=== PATIENT | female | born 1995 | race American Indian/Alaskan Native ===

== ENCOUNTER 2016-05-17 20:44 | Emergency (ER) | payer MEDICAID ==
[2016-05-17 21:23] VITALS: BP 120/83
== END 2016-05-18 02:40 | disposition left against medical advice (07) ==
LOC: ED 20:44
DX: N89.8 Other specified noninflammatory disorders of vagina (principal); L29.9 Pruritus, unspecified; Z53.21 Procedure and treatment not carried out due to patient leaving prior to being seen by health care provider

== ENCOUNTER 2018-05-09 09:47 | Outpatient (CLI) | payer MEDICAID ==
[2018-05-09 10:23] VITALS: BP 95/61
[2018-05-09 10:44] LABS: Bacteria,Urine 2+ /HPF (Negative); Bilirubin,Urine NEG (Negative); Blood,Urine NEG (Negative); Color,Urine Yellow (Yellow); Mucus,Urine FEW /HPF
[2018-05-09] MEDS ORDERED: XYLOCAINE 1% MPF 5 mL INFILTRATI ONE (10:56)
[2018-05-09] MEDS ORDERED: LACTATED RINGERS 1,000 ML IV ONE (10:59)
[2018-05-09] MEDS ORDERED: ROCEPHIN IM SCH (11:00)
[2018-05-09] MEDS ORDERED: ROCEPHIN/NS 1 GM/50 ML 1 GM/50 ML BAG IV ONE (11:24)
== END 2018-05-09 12:55 | disposition home or self-care (01) ==
LOC: TRG 09:47
PROVIDERS: ATTEND Obstetrics & Gynecology
DX: O47.03 False labor before 37 completed weeks of gestation, third trimester (principal); Z3A.32 32 weeks gestation of pregnancy; Z87.891 Personal history of nicotine dependence
CPT/HCPCS: 59025; 81001; J0696; J7120

== ENCOUNTER 2018-06-06 14:41 | Emergency (ER) | payer MEDICAID ==
--- NOTE | 2018-06-06 14:58 | Emergency Department Report ---
Blank Doc - Documentation Documentation: This is a 22-year-old female that presents with nausea vomiting x1 episode. D enies any abdominal pain or pelvic pain. Patient stated she vomited after seeing her daugther vomiting. Stated that smell caused her to vomit. Denies any nausea or vomiting now. Stated is 36 weeks . Denies any vaginal bleeding. This initial assessment/diagnostic orders/clinical plan/treatment(s) is/are subject to change based on patient's health status, clinical progression and re-assessment by fellow clinical providers in the ED. Further treatment and workup at subsequent clinical providers discretion. Patient/guardians urged not to elope from the ED as their condition may be serious if not clinically assessed and managed. Initial orders include: 1- Patient sent to [facility] for further evaluation and treatment
--- NOTE | 2018-06-06 17:32 | Emergency Department Report ---
ED N/V/D HPI - General Chief complaint: Nausea/Vomiting/Diarrhea Stated complaint: FLU LIKE SYM/VOMIT Time Seen by Provider: 06/06/18 14:54 Source: patient Mode of arrival: Ambulatory Limitations: No Limitations - History of Present Illness Initial comments: Pt is a 22 yo female who presents to the ED with c/o nausea and one episode of emesis that occurred this morning. The patient states her daughter has V/D, and she had an episode of emesis while she was cleaning her daughter up due to the smell. The patient denies any abdominal pain, diarrhea, fever, urinary sx, vaginal discharge, or vaginal bleeding. She is currently 36 weeks . The mother is able to tolerate PO intake without any difficulty. /P:2/A:0 MD complaint: nausea, vomiting -: This morning Description of Vomiting: food contents Associated Abdominal Pain: No Severity: mild Pain Scale: 0 Associated Symptoms: denies other symptoms - Related Data Home Medications Medication Instructions Recorded Confirmed Last Taken Vit No.130/Iron/Folic 1 each PO QDAY 07/06/15 07/06/15 07/03/15 10:00 [ Tablet] Previous Rx's Medication Instructions Recorded Last Taken Type Nitrofurantoin Monohyd/M-Cryst 100 mg PO BID #14 capsule 05/09/18 Unknown Rx [Macrobid 100 mg Capsule] Doxylamine Succinate [Unisom] 25 mg PO DAILY PRN #10 tablet 06/06/18 Unknown Rx Pyridoxine HCl (Vitamin B6) 250 mg PO DAILY PRN #10 tablet 06/06/18 Unknown Rx [Vitamin B-6] Allergies Allergy/AdvReac Type Severity Reaction Status Date / Time No Known Allergies Allergy Verified 06/06/18 14:43 ED Review of Systems ROS: Stated complaint: FLU LIKE SYM/VOMIT Other details as noted in HPI Comment: All other systems reviewed and negative ED Past Medical Hx - Past Medical History Hx Hypertension: No Hx Congestive Heart Failure: No Hx Diabetes: No Hx Deep Vein Thrombosis: No Hx Renal Disease: No Hx Sickle Cell Disease: No Hx Seizures: No Hx Asthma: No Hx COPD: No Hx HIV: No - Social History Smoking Status: Never Smoker Substance Use Type: None - Medications Home Medications: Home Medications Medication Instructions Recorded Confirmed Last Taken Type Vit No.130/Iron/Folic 1 each PO QDAY 07/06/15 07/06/15 07/03/15 10:00 History [ Tablet] Nitrofurantoin Monohyd/M-Cryst 100 mg PO BID #14 capsule 05/09/18 Unknown Rx [Macrobid 100 mg Capsule] Doxylamine Succinate [Unisom] 25 mg PO DAILY PRN #10 tablet 06/06/18 Unknown Rx Pyridoxine HCl (Vitamin B6) 250 mg PO DAILY PRN #10 tablet 06/06/18 Unknown Rx [Vitamin B-6] ED Physical Exam - General Limitations: No Limitations General appearance: alert, in no apparent distress - Head Head exam: Present: atraumatic, normocephalic - Eye Eye exam: Present: normal appearance - ENT ENT exam: Present: normal exam, mucous membranes moist - Neck Neck exam: Present: normal inspection - Respiratory Respiratory exam: Present: normal lung sounds bilaterally. Absent: respiratory distress, wheezes, rales, rhonchi, stridor, chest wall tenderness, accessory muscle use, decreased breath sounds, prolonged expiratory - Cardiovascular Cardiovascular Exam: Present: regular rate, normal rhythm, normal heart sounds. Absent: systolic murmur, rubs, gallop - GI/Abdominal GI/Abdominal exam: Present: soft, normal bowel sounds. Absent: distended, tenderness, guarding, rebound, rigid - Neurological Exam Neurological exam: Present: alert, oriented X3 - Psychiatric Psychiatric exam: Present: normal affect, normal mood - Skin Skin exam: Present: warm, dry, intact (no signs of dehydration ) ED Course Vital Signs 06/06/18 06/06/18 14:59 17:50 Temperature 98.1 F Pulse Rate 99 H 76 Respiratory 16 18 Rate Blood Pressure 108/63 [Left] O2 Sat by Pulse 97 Oximetry ED Medical Decision Making - Medical Decision Making Pt is 36 weeks presents with one episode of emesis due to having to clean her daughter up after V/D. Denies any abdominal pain, vaginal bleeding, fever, vaginal discharge, diarrhea, or any other sx. Pt is well hydrated tolerating PO intake with no difficulty. Will send home with diclegis due to being in third trimester . - Differential Diagnosis N/V of , Viral syndrome Critical care attestation.: If time is entered above; I have spent that time in minutes in the direct care of this critically ill patient, excluding procedure time. ED Disposition Clinical Impression: Nausea & vomiting Qualifiers: Vomiting type: unspecified Vomiting Intractability: non-intractable Qualified Code(s): R11.2 - Nausea with vomiting, unspecified Qualifiers: Weeks of gestation: 36 weeks Qualified Code(s): Z3A.36 - 36 weeks gestation of Disposition: TO HOME OR SELFCARE Is pt being admited?: No Does the pt Need Aspirin: No Condition: Stable Instructions: Acute Nausea and Vomiting (ED) Additional Instructions: Follow up with primary care doctor in the next two to three days. Keep your appointment with your OB doctor on 06/10/18. Return to the emergency department if new or worsening symptoms. Do not drive while taking medication, could cause drowsiness. Prescriptions: Doxylamine Succinate [Unisom] 25 mg PO DAILY PRN #10 tablet PRN Reason: Nausea And Vomiting Pyridoxine HCl (Vitamin B6) [Vitamin B-6] 250 mg PO DAILY PRN #10 tablet PRN Reason: Nausea And Vomiting Referrals: CHENCHO ROSALES MD [Primary Care Provider] - 3-5 Days Time of Disposition: 17:33 Print Language: [place]
== END 2018-06-06 17:52 | disposition home or self-care (01) ==
LOC: ED 14:41
CPT/HCPCS: 99282

== ENCOUNTER 2018-11-17 03:21 | Emergency (ER) | payer MEDICAID ==
--- NOTE | 2018-11-17 04:40 | Event Note ---
Date: 11/17/18 Medical screening examination: 22-year-old presenting to the ER with bizarre behavior, not talking, now resolved. Patient accompanied by her mother. Patient walking with a steady gait, appeared to be in no distress, and is sleeping comfortably in her stretcher at this time. Screening laboratory studies, EKG ordered. Vital Signs 11/17/18 03:42 Temperature 98 F Pulse Rate 87 Respiratory 14 Rate Blood Pressure 102/75 O2 Sat by Pulse 97 Oximetry
[2018-11-17 07:43] LABS: Basophils # (Auto) 0.1 K/mm3 (0.0-0.1); Basophils % (Auto) 0.7 % (0.0-1.8); Eosinophils # (Auto) 0.1 K/mm3 (0.0-0.4); Eosinophils % (Auto) 1.1 % (0.0-4.3); Hematocrit 32.1 % (30.3-42.9); Lymphocytes # (Auto) 3.7 K/mm3 (1.2-5.4); Lymphocytes % (Auto) 55.1 % (13.4-35.0); Mean Corpuscular HGB Conc 31 % (30-34); Mean Corpuscular Volume 65 fl (79-97); Monocytes # (Auto) 0.3 K/mm3 (0.0-0.8); Monocytes % (Auto) 4.2 % (0.0-7.3); Platelet Count 619 K/mm3 (140-440); Red Cell Distribution Width 19.5 % (13.2-15.2)
[2018-11-17 07:47] LABS: Bacteria,Urine 1+ /HPF (Negative); Bilirubin,Urine NEG (Negative); Blood,Urine NEG (Negative); Color,Urine Yellow (Yellow); Mucus,Urine FEW /HPF; Protein,Urine <15 mg/dL mg/dL (Negative); Urobilinogen,Urine < 2.0 mg/dL (<2.0)
[2018-11-17 07:49] LABS: BUN/Creatinine Ratio 11; Blood Urea Nitrogen 12 mg/dL (7-17); Calcium 8.6 mg/dL (8.4-10.2); Hemolysis Index 1
[2018-11-17 07:51] LABS: Amphetamine Screen,Urine PRESUMPTIVE NEGATIVE; Benzodiazepines Screen,Urine PRESUMPTIVE NEGATIVE; Cannabinoid Screen,Urine PRESUMPTIVE NEGATIVE; Cocaine Screen,Urine PRESUMPTIVE NEGATIVE; Methadone Screen,Urine PRESUMPTIVE NEGATIVE; Opiate Screen,Urine PRESUMPTIVE NEGATIVE
[2018-11-17] MEDS ORDERED: NACL 0.9% 1000 ML 2,000 ML IV ONE (08:36)
--- NOTE | 2018-11-17 09:11 | Cat Scan Report ---
CT head/brain wo con INDICATION: ams. TECHNIQUE: All CT scans at this location are performed using CT dose reduction for ALARA by means of automated e xposure control. COMPARISON: None available. FINDINGS: Visualized paranasal and mastoid sinuses are clear. Ventricles are symmetrical and normal in size. No mass, hemorrhage or other significant abnormality. IMPRESSION: 1. Negative study. Signer Name: Michele Lewis MD Signed: 11/17/2018 9:07 AM Workstation Name: [id number]
--- NOTE | 2018-11-17 09:20 | Emergency Department Report ---
ED General Adult HPI - General Chief complaint: Altered Mental Status Stated complaint: ANXIETY Time Seen by Provider: 11/17/18 08:05 Source: patient, EMS Mode of arrival: Ambulatory Limitations: No Limitations - History of Present Illness Initial comments: Patient presents to the emergency department via EMS for syncopal episode. Per the patient and her mother she states she was at home cooking and cleaning when she passed out. Patient denies a history of syncope. Patient denies having chest pain prior to or after the syncopal episode. There is also mild shortness of breath or recent travel. -: Sudden Severity scale (0 -10): 0 Consistency: now resolved Improves with: none Worsens with: none Associated Symptoms: denies other symptoms Treatments Prior to Arrival: none - Related Data Home Medications Medication Instructions Recorded Confirmed Last Taken Vit No.130/Iron/Folic 1 each PO QDAY 07/06/15 07/06/15 07/03/15 10:00 [ Tablet] Previous Rx's Medication Instructions Recorded Last Taken Type Nitrofurantoin Monohyd/M-Cryst 100 mg PO BID #14 capsule 05/09/18 Unknown Rx [Macrobid 100 mg Capsule] Doxylamine Succinate [Unisom] 25 mg PO DAILY PRN #10 tablet 06/06/18 Unknown Rx Pyridoxine HCl (Vitamin B6) 250 mg PO DAILY PRN #10 tablet 06/06/18 Unknown Rx [Vitamin B-6] Allergies Allergy/AdvReac Type Severity Reaction Status Date / Time No Known Allergies Allergy Verified 06/06/18 14:43 ED Review of Systems ROS: Stated complaint: ANXIETY Other details as noted in HPI Comment: All other systems reviewed and negative Constitutional: denies: chills, fever Eyes: denies: eye pain, eye discharge, vision change ENT: denies: ear pain, throat pain Respiratory: denies: cough, shortness of breath, wheezing Cardiovascular: denies: chest pain, palpitations Endocrine: no symptoms reported Gastrointestinal: denies: abdominal pain, nausea, diarrhea Genitourinary: denies: urgency, dysuria, discharge Musculoskeletal: denies: back pain, joint swelling, arthralgia Skin: denies: rash, lesions Neurological: denies: headache, weakness, paresthesias Psychiatric: denies: anxiety, depression Hematological/Lymphatic: denies: easy bleeding, easy bruising ED Past Medical Hx - Past Medical History Previous Medical History?: Yes Hx Hypertension: No Hx Congestive Heart Failure: No Hx Diabetes: No Hx Deep Vein Thrombosis: No Hx Renal Disease: No Hx Sickle Cell Disease: No Hx Seizures: No Hx Psychiatric Treatment: Yes (Anxiety) Hx Asthma: No Hx COPD: No Hx HIV: No - Surgical History Past Surgical History?: No - Social History Smoking Status: Unknown if ever smoked Substance Use Type: None - Medications Home Medications: Home Medications Medication Instructions Recorded Confirmed Last Taken Type Vit No.130/Iron/Folic 1 each PO QDAY 07/06/15 07/06/15 07/03/15 10:00 History [ Tablet] Nitrofurantoin Monohyd/M-Cryst 100 mg PO BID #14 capsule 05/09/18 Unknown Rx [Macrobid 100 mg Capsule] Doxylamine Succinate [Unisom] 25 mg PO DAILY PRN #10 tablet 06/06/18 Unknown Rx Pyridoxine HCl (Vitamin B6) 250 mg PO DAILY PRN #10 tablet 06/06/18 Unknown Rx [Vitamin B-6] ED Physical Exam - General Limitations: No Limitations General appearance: alert, in no apparent distress - Head Head exam: Present: atraumatic, normocephalic - Eye Eye exam: Present: normal appearance - ENT ENT exam: Present: mucous membranes dry - Neck Neck exam: Present: normal inspection - Respiratory Respiratory exam: Present: normal lung sounds bilaterally. Absent: respiratory distress - Cardiovascular Cardiovascular Exam: Present: regular rate, normal rhythm. Absent: systolic murmur, diastolic murmur, rubs, gallop - GI/Abdominal GI/Abdominal exam: Present: soft, normal bowel sounds. Absent: distended, tenderness - Extremities Exam Extremities exam: Present: normal inspection - Back Exam Back exam: Present: normal inspection - Neurological Exam Neurological exam: Present: alert, oriented X3, CN II-XII intact. Absent: motor sensory deficit - Psychiatric Psychiatric exam: Present: normal affect, normal mood - Skin Skin exam: Present: warm, dry, intact, normal color. Absent: rash ED Course Vital Signs 11/17/18 11/17/18 11/17/18 03:42 04:44 05:34 Temperature 98 F 97.8 F Pulse Rate 87 97 H Respiratory 14 16 18 Rate Blood Pressure 102/75 Blood Pressure 129/78 [Left] O2 Sat by Pulse 97 98 Oximetry ED Medical Decision Making - Lab Data Result diagrams: 11/17/18 06:54 11/17/18 06:54 Lab Results 11/17/18 11/17/18 11/17/18 Range/Units 03:55 06:54 06:54 WBC 6.8 (4.5-11.0) K/mm3 RBC 4.90 (3.65-5.03) M/mm3 Hgb 10.0 L (10.1-14.3) gm/dl Hct 32.1 (30.3-42.9) % MCV 65 L (79-97) fl MCH 20 L (28-32) pg MCHC 31 (30-34) % RDW 19.5 H (13.2-15.2) % Plt Count 619 H (140-440) K/mm3 Lymph % (Auto) 55.1 H (13.4-35.0) % Ray % (Auto) 4.2 (0.0-7.3) % Eos % (Auto) 1.1 (0.0-4.3) % Baso % (Auto) 0.7 (0.0-1.8) % Lymph # 3.7 (1.2-5.4) K/mm3 Ray # 0.3 (0.0-0.8) K/mm3 Eos # 0.1 (0.0-0.4) K/mm3 Baso # 0.1 (0.0-0.1) K/mm3 Seg Neutrophils % 38.9 L (40.0-70.0) % Seg Neutrophils # 2.7 (1.8-7.7) K/mm3 Sodium 142 (137-145) mmol/L Potassium 4.0 (3.6-5.0) mmol/L Chloride 105.8 (98-107) mmol/L Carbon Dioxide 26 (22-30) mmol/L Anion Gap 14 mmol/L BUN 12 (7-17) mg/dL Creatinine 1.1 (0.7-1.2) mg/dL Estimated GFR > 60 ml/min BUN/Creatinine Ratio 11 % Glucose 101 H (65-100) mg/dL Calcium 8.6 (8.4-10.2) mg/dL Magnesium (1.7-2.3) mg/dL Total Creatine Kinase (30-135) units/L HCG, Qual (Negative) HCG, Quant (0-4) mIU/mL Urine Color Yellow (Yellow) Urine Turbidity Cloudy (Clear) Urine pH 7.0 (5.0-7.0) Ur Specific Archie 1.019 (1.003-1.030) Urine Protein <15 mg/dl (Negative) mg/dL Urine Glucose (UA) Neg (Negative) mg/dL Urine Ketones Tr (Negative) mg/dL Urine Blood Neg (Negative) Urine Nitrite Neg (Negative) Urine Bilirubin Neg (Negative) Urine Urobilinogen < 2.0 (<2.0) mg/dL Ur Leukocyte Esterase Mod (Negative) Urine WBC (Auto) 5.0 (0.0-6.0) /HPF Urine RBC (Auto) 3.0 (0.0-6.0) /HPF U Epithel Cells (Auto) 4.0 (0-13.0) /HPF Urine Bacteria (Auto) 1+ (Negative) /HPF Urine Mucus Few /HPF Urine Yeast (Budding) 1+ /HPF Salicylates (2.8-20.0) mg/dL Urine Opiates Screen Urine Methadone Screen Acetaminophen (10.0-30.0) ug/mL Ur Barbiturates Screen Ur Phencyclidine Scrn Ur Amphetamines Screen U Benzodiazepines Scrn Urine Cocaine Screen U Marijuana (THC) Screen Drugs of Abuse Note Plasma/Serum Alcohol (0-0.07) % 11/17/18 11/17/18 11/17/18 Range/Units 06:54 06:54 07:15 WBC (4.5-11.0) K/mm3 RBC (3.65-5.03) M/mm3 Hgb (10.1-14.3) gm/dl Hct (30.3-42.9) % MCV (79-97) fl MCH (28-32) pg MCHC (30-34) % RDW (13.2-15.2) % Plt Count (140-440) K/mm3 Lymph % (Auto) (13.4-35.0) % Ray % (Auto) (0.0-7.3) % Eos % (Auto) (0.0-4.3) % Baso % (Auto) (0.0-1.8) % Lymph # (1.2-5.4) K/mm3 Ray # (0.0-0.8) K/mm3 Eos # (0.0-0.4) K/mm3 Baso # (0.0-0.1) K/mm3 Seg Neutrophils % (40.0-70.0) % Seg Neutrophils # (1.8-7.7) K/mm3 Sodium (137-145) mmol/L Potassium (3.6-5.0) mmol/L Chloride (98-107) mmol/L Carbon Dioxide (22-30) mmol/L Anion Gap mmol/L BUN (7-17) mg/dL Creatinine (0.7-1.2) mg/dL Estimated GFR ml/min BUN/Creatinine Ratio % Glucose (65-100) mg/dL Calcium (8.4-10.2) mg/dL Magnesium 2.00 (1.7-2.3) mg/dL Total Creatine Kinase 96 (30-135) units/L HCG, Qual (Negative) HCG, Quant < 2 (0-4) mIU/mL Urine Color (Yellow) Urine Turbidity (Clear) Urine pH (5.0-7.0) Ur Specific Archie (1.003-1.030) Urine Protein (Negative) mg/dL Urine Glucose (UA) (Negative) mg/dL Urine Ketones (Negative) mg/dL Urine Blood (Negative) Urine Nitrite (Negative) Urine Bilirubin (Negative) Urine Urobilinogen (<2.0) mg/dL Ur Leukocyte Esterase (Negative) Urine WBC (Auto) (0.0-6.0) /HPF Urine RBC (Auto) (0.0-6.0) /HPF U Epithel Cells (Auto) (0-13.0) /HPF Urine Bacteria (Auto) (Negative) /HPF Urine Mucus /HPF Urine Yeast (Budding) /HPF Salicylates (2.8-20.0) mg/dL Urine Opiates Screen Presumptive negative Urine Methadone Screen Presumptive negative Acetaminophen (10.0-30.0) ug/mL Ur Barbiturates Screen Presumptive negative Ur Phencyclidine Scrn Presumptive negative Ur Amphetamines Screen Presumptive negative U Benzodiazepines Scrn Presumptive negative Urine Cocaine Screen Presumptive negative U Marijuana (THC) Screen Presumptive negative Drugs of Abuse Note Disclamer Plasma/Serum Alcohol (0-0.07) % 11/17/18 11/17/18 11/17/18 Range/Units Unknown Unknown Unknown WBC (4.5-11.0) K/mm3 RBC (3.65-5.03) M/mm3 Hgb (10.1-14.3) gm/dl Hct (30.3-42.9) % MCV (79-97) fl MCH (28-32) pg MCHC (30-34) % RDW (13.2-15.2) % Plt Count (140-440) K/mm3 Lymph % (Auto) (13.4-35.0) % Ray % (Auto) (0.0-7.3) % Eos % (Auto) (0.0-4.3) % Baso % (Auto) (0.0-1.8) % Lymph # (1.2-5.4) K/mm3 Ray # (0.0-0.8) K/mm3 Eos # (0.0-0.4) K/mm3 Baso # (0.0-0.1) K/mm3 Seg Neutrophils % (40.0-70.0) % Seg Neutrophils # (1.8-7.7) K/mm3 Sodium (137-145) mmol/L Potassium (3.6-5.0) mmol/L Chloride (98-107) mmol/L Carbon Dioxide (22-30) mmol/L Anion Gap mmol/L BUN (7-17) mg/dL Creatinine (0.7-1.2) mg/dL Estimated GFR ml/min BUN/Creatinine Ratio % Glucose (65-100) mg/dL Calcium (8.4-10.2) mg/dL Magnesium (1.7-2.3) mg/dL Total Creatine Kinase (30-135) units/L HCG, Qual Negative (Negative) HCG, Quant (0-4) mIU/mL Urine Color (Yellow) Urine Turbidity (Clear) Urine pH (5.0-7.0) Ur Specific Archie (1.003-1.030) Urine Protein (Negative) mg/dL Urine Glucose (UA) (Negative) mg/dL Urine Ketones (Negative) mg/dL Urine Blood (Negative) Urine Nitrite (Negative) Urine Bilirubin (Negative) Urine Urobilinogen (<2.0) mg/dL Ur Leukocyte Esterase (Negative) Urine WBC (Auto) (0.0-6.0) /HPF Urine RBC (Auto) (0.0-6.0) /HPF U Epithel Cells (Auto) (0-13.0) /HPF Urine Bacteria (Auto) (Negative) /HPF Urine Mucus /HPF Urine Yeast (Budding) /HPF Salicylates < 0.3 L (2.8-20.0) mg/dL Urine Opiates Screen Urine Methadone Screen Acetaminophen < 5.0 L (10.0-30.0) ug/mL Ur Barbiturates Screen Ur Phencyclidine Scrn Ur Amphetamines Screen U Benzodiazepines Scrn Urine Cocaine Screen U Marijuana (THC) Screen Drugs of Abuse Note Plasma/Serum Alcohol (0-0.07) % 11/17/18 Range/Units Unknown WBC (4.5-11.0) K/mm3 RBC (3.65-5.03) M/mm3 Hgb (10.1-14.3) gm/dl Hct (30.3-42.9) % MCV (79-97) fl MCH (28-32) pg MCHC (30-34) % RDW (13.2-15.2) % Plt Count (140-440) K/mm3 Lymph % (Auto) (13.4-35.0) % Ray % (Auto) (0.0-7.3) % Eos % (Auto) (0.0-4.3) % Baso % (Auto) (0.0-1.8) % Lymph # (1.2-5.4) K/mm3 Ray # (0.0-0.8) K/mm3 Eos # (0.0-0.4) K/mm3 Baso # (0.0-0.1) K/mm3 Seg Neutrophils % (40.0-70.0) % Seg Neutrophils # (1.8-7.7) K/mm3 Sodium (137-145) mmol/L Potassium (3.6-5.0) mmol/L Chloride (98-107) mmol/L Carbon Dioxide (22-30) mmol/L Anion Gap mmol/L BUN (7-17) mg/dL Creatinine (0.7-1.2) mg/dL Estimated GFR ml/min BUN/Creatinine Ratio % Glucose (65-100) mg/dL Calcium (8.4-10.2) mg/dL Magnesium (1.7-2.3) mg/dL Total Creatine Kinase (30-135) units/L HCG, Qual (Negative) HCG, Quant (0-4) mIU/mL Urine Color (Yellow) Urine Turbidity (Clear) Urine pH (5.0-7.0) Ur Specific Archie (1.003-1.030) Urine Protein (Negative) mg/dL Urine Glucose (UA) (Negative) mg/dL Urine Ketones (Negative) mg/dL Urine Blood (Negative) Urine Nitrite (Negative) Urine Bilirubin (Negative) Urine Urobilinogen (<2.0) mg/dL Ur Leukocyte Esterase (Negative) Urine WBC (Auto) (0.0-6.0) /HPF Urine RBC (Auto) (0.0-6.0) /HPF U Epithel Cells (Auto) (0-13.0) /HPF Urine Bacteria (Auto) (Negative) /HPF Urine Mucus /HPF Urine Yeast (Budding) /HPF Salicylates (2.8-20.0) mg/dL Urine Opiates Screen Urine Methadone Screen Acetaminophen (10.0-30.0) ug/mL Ur Barbiturates Screen Ur Phencyclidine Scrn Ur Amphetamines Screen U Benzodiazepines Scrn Urine Cocaine Screen U Marijuana (THC) Screen Drugs of Abuse Note Plasma/Serum Alcohol < 0.01 (0-0.07) % - Radiology Data Radiology results: report reviewed - Medical Decision Making Results discussed with the patient and her boyfriend Critical care attestation.: If time is entered above; I have spent that time in minutes in the direct care of this critically ill patient, excluding procedure time. ED Disposition Clinical Impression: Syncope Disposition: DC-01 TO HOME OR SELFCARE Is pt being admited?: No Does the pt Need Aspirin: No Condition: Stable Instructions: Syncope (ED) Additional Instructions: return if worse Referrals: ALINA CASTILLO [Primary Care Provider] - 3-5 Days Time of Disposition: 10:32
[2018-11-17 10:45] VITALS: BP 135/69
== END 2018-11-17 10:45 | disposition home or self-care (01) ==
LOC: ED 03:21
DX: R55 Syncope and collapse (principal); R06.02 Shortness of breath; F41.9 Anxiety disorder, unspecified; Z79.899 Other long term (current) drug therapy
CPT/HCPCS: 36415; 70450; 80048; 80307; 81001; 82550; 83735; 84702; 84703; 85025; 96360; 96361; 99284; J7030; 80320; G0480

== ENCOUNTER 2019-09-29 20:49 | Outpatient (CLI) | payer MEDICAID ==
[2019-09-29 22:43] VITALS: BP 105/65
--- NOTE | 2019-09-29 22:51 | Ultrasound Report ---
ULTRASOUND BIOPHYSICAL PROFILE INDICATION: well being. COMPARISON: None available. FINDINGS: breathing movement = 2 Gross body movement = 2 tone = 2 Qualitative amniotic fluid volume = 2 Total biophysical score = 8/8 Presentation is Breech. heart rate is 145 beats per minute. IMPRESSION: biophysical profile = 8/8 lie is currently breech Signer Name: Cong Lackey MD Signed: 09/29/2019 10:46 PM Workstation Name: [id number]
== END 2019-09-29 22:57 | disposition home or self-care (01) ==
LOC: TRG 20:49 → APU 20:50 → TRG 22:57
PROVIDERS: ATTEND Obstetrics & Gynecology
DX: O26.892 Other specified pregnancy related conditions, second trimester (principal); W19.XXXA Unspecified fall, initial encounter; Y93.89 Activity, other specified; Y92.89 Other specified places as the place of occurrence of the external cause; Y99.8 Other external cause status; Z3A.21 21 weeks gestation of pregnancy
CPT/HCPCS: 76819

== ENCOUNTER 2019-11-01 03:45 | Outpatient (CLI) | payer MEDICAID ==
[2019-11-01 05:18] VITALS: BP 99/59
[2019-11-01] MEDS ORDERED: LACTATED RINGERS 1,000 ML IV ONE (05:27)
[2019-11-01 06:15] LABS: Bacteria,Urine 1+ /HPF (Negative); Bilirubin,Urine NEG (Negative); Blood,Urine NEG (Negative); Color,Urine Yellow (Yellow); Mucus,Urine 2+ /HPF; Protein,Urine <15 mg/dL mg/dL (Negative)
== END 2019-11-01 08:08 | disposition home or self-care (01) ==
LOC: EDSTATUS 04:00 → TRG 04:05 → APU 05:11 → TRG 08:08
PROVIDERS: ATTEND Obstetrics & Gynecology
DX: O26.892 Other specified pregnancy related conditions, second trimester (principal); R25.2 Cramp and spasm; O47.02 False labor before 37 completed weeks of gestation, second trimester; Z3A.26 26 weeks gestation of pregnancy
CPT/HCPCS: 59025; 81001; 96360; J7120

== ENCOUNTER 2019-11-22 19:15 | Outpatient (CLI) | payer MEDICAID ==
[2019-11-22 19:30] VITALS: BP 115/74
[2019-11-22] MEDS ORDERED: LACTATED RINGERS 1,000 ML IV ONE ×2 (19:44→22:29)
[2019-11-22 22:00] LABS: Bacteria,Urine 1+ /HPF (Negative); Bilirubin,Urine NEG (Negative); Blood,Urine LG (Negative); Color,Urine Yellow (Yellow); Mucus,Urine 2+ /HPF
[2019-11-22 22:02] LABS: RBC,Urine > 182.0 /HPF (0.0-6.0)
[2019-11-22] MEDS ORDERED: cefTRIAXone/NS 1 GM/50 ML 1 GM/50 ML BAG IV ONE (23:00)
[2019-11-22] MEDS ORDERED: cefTRIAXone/NS 1 GM/50 ML IVPB IV ONE (23:00)
[2019-11-23] MEDS: TERBUTALINE 1 MG/1 ML INJ IVP PRN ×2 (00:50→01:21)
[2019-11-23] MEDS ORDERED: cefTRIAXone/NS 1 GM/50 ML 1 GM/50 ML BAG IV ONE (23:00)
== END 2019-11-23 02:05 | disposition home or self-care (01) ==
LOC: APU 19:15 → TRG 19:15
PROVIDERS: ATTEND Obstetrics & Gynecology
DX: O26.893 Other specified pregnancy related conditions, third trimester (principal); R10.30 Lower abdominal pain, unspecified; O47.03 False labor before 37 completed weeks of gestation, third trimester; Z3A.29 29 weeks gestation of pregnancy
CPT/HCPCS: 59025; 81001; 87086; 96361; 96365; 96374; J0696; J3105; J7120; 96360; 96372

== ENCOUNTER 2020-01-06 20:54 | Outpatient (CLI) | payer MEDICAID ==
[2020-01-06 21:12] VITALS: BP 143/65
[2020-01-06 22:08] LABS: Bacteria,Urine 1+ /HPF (Negative); Bilirubin,Urine NEG (Negative); Blood,Urine NEG (Negative); Color,Urine Yellow (Yellow); Mucus,Urine FEW /HPF
== END 2020-01-06 21:43 | disposition home or self-care (01) ==
LOC: TRG 20:54 → APU 20:55 → TRG 21:43
PROVIDERS: ATTEND Obstetrics & Gynecology
DX: O42.913 Preterm premature rupture of membranes, unspecified as to length of time between rupture and onset of labor, third trimester (principal); Z3A.36 36 weeks gestation of pregnancy
CPT/HCPCS: 59025; 81001; 87086

== ENCOUNTER 2020-01-14 20:16 | Outpatient (CLI) | payer MEDICAID ==
[2020-01-14 20:43] VITALS: BP 134/64
== END 2020-01-14 21:51 | disposition home or self-care (01) ==
LOC: TRG 20:16 → APU 20:33 → TRG 21:51
PROVIDERS: ATTEND Obstetrics & Gynecology
DX: O47.1 False labor at or after 37 completed weeks of gestation (principal); Z3A.37 37 weeks gestation of pregnancy
CPT/HCPCS: 59025

== ENCOUNTER 2020-01-15 15:27 | Outpatient (CLI) | payer MEDICAID ==
[2020-01-15 16:03] VITALS: BP 115/72
== END 2020-01-15 17:00 | disposition home or self-care (01) ==
LOC: TRG 15:27 → APU 15:30 → TRG 17:00 → APU 01-16 00:04
PROVIDERS: ATTEND Obstetrics & Gynecology
DX: O47.1 False labor at or after 37 completed weeks of gestation (principal); Z3A.37 37 weeks gestation of pregnancy
CPT/HCPCS: 59025

== ENCOUNTER 2020-01-19 13:33 | Outpatient (CLI) | payer MEDICAID ==
[2020-01-19 14:08] VITALS: BP 116/75
--- NOTE | 2020-01-19 17:57 | Ultrasound Report ---
LIMITED OBSTETRICAL ULTRASOUND. HISTORY: Leaking fluid FINDINGS: Limited obstetrical ultrasound was performed. A single viable intrauterine has fe homero heart tones of 138 bpm. position is cephalic. Amniotic fluid is within normal limits with a n KARY of 11.2. IMPRESSION: Unremarkable limited obstetrical ultrasound. Signer Name: Jovan Bowles MD Signed: 01/19/2020 5:52 PM Workstation Name: [id number]
== END 2020-01-19 17:58 | disposition home or self-care (01) ==
LOC: TRG 13:33 → APU 13:43 → TRG 17:58
PROVIDERS: ATTEND Obstetrics & Gynecology
DX: O47.1 False labor at or after 37 completed weeks of gestation (principal); Z3A.38 38 weeks gestation of pregnancy
CPT/HCPCS: 59025; 76815

== ENCOUNTER 2020-01-23 19:29 | Inpatient (IN) | payer MEDICAID ==
[2020-01-23] MEDS ORDERED: LACTATED RINGERS 1,000 ML ONE (20:59)
[2020-01-23 21:45] LABS: Bacteria,Urine 1+ /HPF (Negative); Bilirubin,Urine NEG (Negative); Blood,Urine NEG (Negative); Color,Urine Yellow (Yellow); Mucus,Urine FEW /HPF
[2020-01-23] MEDS ORDERED: LACTATED RINGERS 1000 ML IV SOLN IV SCH (22:00)
[2020-01-23] MEDS ORDERED: AMPICILLIN/NS 2 GM/100 ML 2 GM/100 ML BAG IV ONE (23:28)
[2020-01-23] MEDS ORDERED: LIDOCAINE (2%) 20 MG/1 ML VIAL 20 ML MDV INFILTRATI ONE (23:28)
[2020-01-23] MEDS ORDERED: MINERAL OIL 30 ML ORAL LIQD PO PRN (23:28)
[2020-01-23] MEDS ORDERED: TERBUTALINE 1 MG/1 ML INJ SUB-Q PRN (23:28)
[2020-01-23] MEDS ORDERED: ePHEDrine SULFATE 50 MG/1 ML INJ IV PRN (23:28)
--- NOTE | 2020-01-23 23:29 | Ultrasound Report ---
ULTRASOUND OBSTETRIC LIMITED ULTRASOUND BIOPHYSICAL PROFILE INDICATION / CLINICAL INFORMATION: BPP. R/O ABRUPTION. Recent history of leaking fluid. Clinical Gestational Age (GA): 38.0 weeks.days COMPARISON: Ultrasound dated 01/19/20 FINDINGS: BREATHING MOVEMENT = 2 GROSS BODY MOVEMENT = 2 TONE = 2 QUALITATIVE AMNIOTIC FLUID VOLUME = 2 TOTAL BIOPHYSICAL SCORE = 8/8 HEART RATE (beats per minute): 138 AMNIOTIC FLUID INDEX (cm) = 11.2 (normal = 7-24 cm) PRESENTATION: Cephalic. ADDITIONAL FINDINGS: Placenta is anterior with no acute abnormality. IMPRESSION: 1. Biophysical Score = 8/8 2. Anterior placenta with no acute abnormality. Signer Name: Maurizio Nichols MD Signed: 01/23/2020 11:25 PM Workstation Name: [id number]
[2020-01-23] MEDS ORDERED: OXYTOCIN DRIP 30 UNITS/500 ML BAG IV SCH (23:45)
[2020-01-23] MEDS ORDERED: LACTATED RINGERS 1,000 ML IV SCH (23:45)
[2020-01-23] MEDS ORDERED: fentaNYL 100 MCG/2 ML INJ ONE (23:58)
[2020-01-23] MEDS ORDERED: fentaNYL 100 MCG/2 ML INJ IV ONE (23:59)
[2020-01-24 00:09] LABS: Hemoglobin 8.7 gm/dl (10.1-14.3); Mean Corpuscular HGB Conc 30 % (30-34); Mean Corpuscular Volume 61 fl (79-97); Platelet Count 479 K/mm3 (140-440); Red Blood Count 4.73 M/mm3 (3.65-5.03); Red Cell Distribution Width 22.8 % (13.2-15.2)
[2020-01-24] MEDS ORDERED: fentaNYL 100 MCG/2 ML INJ IV PRN (00:26)
[2020-01-24 00:39] LABS: Amphetamine Screen,Urine PRESUMPTIVE NEGATIVE; Benzodiazepines Screen,Urine PRESUMPTIVE NEGATIVE; Cannabinoid Screen,Urine PRESUMPTIVE NEGATIVE; Cocaine Screen,Urine PRESUMPTIVE NEGATIVE; Methadone Screen,Urine PRESUMPTIVE NEGATIVE; Opiate Screen,Urine PRESUMPTIVE NEGATIVE
--- NOTE | 2020-01-24 01:18 | Anesthesia Consultation ---
Anesthesia Consult and Med Hx Date of service: 01/24/20 - Airway Anesthetic Teeth Evaluation: Good ROM Head & Neck: Adequate Mental/Hyoid Distance: Adequate Mallampati Class: Class II Intubation Access Assessment: Probably Good - Pulmonary Exam CTA: Yes - Cardiac Exam Cardiac Exam: RRR - Pre-Operative Health Status ASA Pre-Surgery Classification: ASA2 Proposed Anesthetic Plan: Epidural - Pulmonary Hx Asthma: No COPD: No Hx Pneumonia: No - Cardiovascular System Hx Hypertension: No - Central Nervous System Hx Seizures: No Hx Psychiatric Problems: No - Endocrine Hx Renal Disease: No Hx End Stage Renal Disease: No Hx Hypothyroidism: No Hx Hyperthyroidism: No - Hematic Hx Anemia: Yes (TRANSFUSION DEC 2019) Hx Sickle Cell Disease: No - Other Systems Hx Alcohol Use: No
[2020-01-24] MEDS ORDERED: ePHEDrine SULFATE 50 MG/1 ML INJ IV PRN (01:19)
[2020-01-24] MEDS ORDERED: NALOXONE 2 MG/2 ML INJ IV PRN (01:19)
--- NOTE | 2020-01-24 01:19 | Progress Note ---
Labor Epidural - Labor Epidural Start Time: 00:56 Stop Time: 01:09 Performed by:: ESTEBAN LUIS Procedure: Patient is requesting epidural for labor pain. H&P, and labs reviewed. Procedure explained, questions answered, consent obtained. Patient in sitting position with blood pressure cuff and pulse ox on and working. Timeout performed immediately before start of procedure. Sterile betadine prep/drape. 3 mL 1% lidocaine skin wheal at L[3]-L[4]. 18-gauge Touhy epidural needle advanced to [id number] with saline at [7] cm. Epidural dexmedetomidine [30] mcg administered. Epidural catheter advanced to [12] cm, negative aspiration for blood and csf, negative test dose 3 ml 1.5% lidocaine with epinephrine. Sterile steri-strips and tegaderm applied, followed by tape reinforcement. Patient tolerated procedure well. Geoff DEL CASTILLO
[2020-01-24] MEDS ORDERED: fentaNYL-BUPIV 2 MCG/ML-0.125% 200 MCG/100 ML BAG EPIDURAL SCH (02:00)
[2020-01-24] MEDS ORDERED: METHYLERGONOVINE MALEATE 0.2 MG/ML VIAL IM ONE ×2 (02:25→02:29)
--- NOTE | 2020-01-24 02:47 | History and Physical Report ---
History of Present Illness Date of examination: 01/24/20 Date of admission: 01/23/20 20:18 Chief complaint: I'm having contractions History of present illness: Pt is a 24 year old who presents at 38.4 weeks gestation with EDC 02/02/20 in active labor. Pt has received care at [facility]. Pt has a history of anemia. Past History Past Medical History: hematologic disorders (anemia, alpha-thallasemia trait) Past Surgical History: no surgical history Social history: single - Obstetrical History Expected Date of Delivery: 02/02/20 Actual Gestation: 38 Week(s) 5 Day(s) : 5 Para: 3 Number of Living Children: 3 Medications and Allergies Allergies Allergy/AdvReac Type Severity Reaction Status Date / Time No Known Allergies Allergy Verified 06/06/18 14:43 Home Medications Medication Instructions Recorded Confirmed Last Taken Type No Known Home Medications [No 01/24/20 01/24/20 Unknown History Reported Home Medications] Active Meds: Active Medications Ephedrine Sulfate (Ephedrine Sulfate) 10 mg IV Q2M PRN PRN Reason: Hypotension Fentanyl (Sublimaze) 100 mcg IV Q2H PRN PRN Reason: Pain,Severe (7-10) LABOR PAIN Oxytocin/Sodium Chloride (Pitocin/Ns 30 Unit/500ml) 30 units in 500 mls @ 2 mls/hr IV TITR BRUCE; Protocol Lactated Ringer's (Lactated Ringers) 1,000 mls @ 125 mls/hr IV DIRECT BRUCE Last Admin: 01/24/20 00:11 Dose: 125 mls/hr Documented by: Fentanyl/Bupivacaine/Sodium Chlor (Fentanyl-Bupiv 2 Mcg/Ml-0.125%) 200 mcg in 100 mls @ 12 mls/hr EPIDURAL TITR BRUCE; Protocol Mineral Oil (Mineral Oil) 30 ml PO QHS PRN PRN Reason: Constipation Naloxone HCl (Naloxone) 0.2 mg IV Q5M PRN PRN Reason: Respiratory sedation Terbutaline Sulfate (Brethine) 0.25 mg SUB-Q ONCE PRN PRN Reason: Hyperstimulation/Hypertonicity Review of Systems All systems: negative Constitutional: fatigue Genitourinary: leakage of fluid, contractions - Vital Signs Vital signs: Vital Signs Temp Pulse Resp BP Pulse Ox 98.1 F 95 H 20 121/94 98 01/23/20 20:10 01/23/20 20:10 01/23/20 20:10 01/23/20 20:10 01/23/20 20:10 Temp Pulse Resp BP Pulse Ox 98.1 F 66 20 113/57 65 L 01/23/20 20:10 01/24/20 02:43 01/23/20 20:10 01/24/20 02:43 01/24/20 01:58 - Physical Exam Breasts: Cardiovascular: Regular rate, Normal S1, Normal S2, Other (3/6 murmur) Lungs: Positive: Clear to auscultation, Normal air movement Abdomen: Positive: normal appearance, soft, normal bowel sounds. Negative: distention, tenderness Genitourinary (Female): Positive: normal external genitalia, normal perenium Vulva: both: normal Vagina: Positive: normal moisture. Negative: discharge Cervix: Negative: lesion, discharge Uterus: Positive: normal size, normal contour Adnexa: both: normal Anus/Rectum: Positive: normal perianal skin, heme negative. Negative: rectal mass, hemorrhoids Extremities: Deep Tendon Reflex Grade: Normal +2 - Obstetrical FHR: auscultation normal Cervical Dilatation: 5 Cervical Effacement Percentage: 80 station: -1 Uterine Contraction Pattern: Regular Uterine Tone Measurement Phase: Contraction Uterine Contraction Intensity: Moderate Results Result Diagrams: 01/23/20 21:25 Abnormal lab results 01/23/20 01/23/20 Range/Units 21:20 21:25 WBC 11.4 H (4.5-11.0) K/mm3 Hgb 8.7 L (10.1-14.3) gm/dl Hct 29.0 L (30.3-42.9) % MCV 61 L (79-97) fl MCH 18 L (28-32) pg RDW 22.8 H (13.2-15.2) % Plt Count 479 H (140-440) K/mm3 Urine WBC (Auto) 7.0 H (0.0-6.0) /HPF U Epithel Cells (Auto) 19.0 H (0-13.0) /HPF All other labs normal. Assessment and Plan IUP at 38.4 weeks here in active labor Admit for labor. Pt may have epidural. Anticipate .Will try to treat for GBS for unknown status.
--- NOTE | 2020-01-24 03:19 | Procedure Note ---
OB Delivery Note - Delivery Date of Delivery: 01/24/20 Surgeon: WHITLEY BOUCHER Estimated blood loss: 500cc - Vaginal Delivery presentation: vertex Delivery position: OA Intrapartum events: precipitous labor- <3hr, decreased FHT variability Delivery induction: none Delivery monitor: external FHT, external uterine Route of delivery: Delivery placenta: spontaneous Delivery cord: 3 umbilical vessels Delivery laceration: none Anesthesia: epidural Delivery comments: Viable male delivered over intact perineum with no nuchal. Weight 6 pounds 12 ounces. Apgars 8,9. Placenta delivered spontaneously and int - A at 1 minute: 8 at 5 minutes: 9 Gender: Male
[2020-01-24] MEDS ORDERED: IBUPROFEN 800 MG TAB PO PRN (08:05)
[2020-01-24] MEDS ORDERED: MAGNESIUM HYDROXIDE (MOM) ORAL LIQD UDC PO PRN (12:09)
[2020-01-24] MEDS ORDERED: LANOLIN/ZINC/DIMETHICONE (LANSINOH) 7 GM TP PRN (12:09)
[2020-01-24] MEDS ORDERED: PROMETHAZINE 25 MG TAB PO PRN (12:09)
[2020-01-24] MEDS ORDERED: diphenhydrAMINE 25 MG CAP PO PRN (12:09)
[2020-01-24] MEDS ORDERED: ONDANSETRON 4 MG/2 ML INJ IV PRN (12:09)
[2020-01-24] MEDS ORDERED: WITCH HAZEL/ GLYCERIN PAD TP PRN (12:09)
[2020-01-24] MEDS: HYDROcodone/ACETAMINOPHEN 5-325 MG TAB PO PRN ×2 (12:36→23:12)
[2020-01-24] MEDS: IBUPROFEN 600 MG TAB PO SCH (17:02)
[2020-01-24 20:01] LABS: Hematocrit 22.8 % (30.3-42.9); Hemoglobin 6.9 gm/dl (10.1-14.3)
--- NOTE | 2020-01-24 20:18 | Post Anesthesia Evaluation ---
- Post Anesthesia Evaluation Patient Participated: Yes Airway Patent: Yes Stable Respiratory Function: Yes Nausea/Vomiting: No Temp > 96.8F: Yes Pain Manageable: Yes Adequeate Hydration: Yes Anesthesia Complications: No Block Receding Appropriately: Yes
[2020-01-24] MEDS: DOCUSATE SODIUM 100 MG CAP PO SCH (23:11)
[2020-01-24] MEDS: FERROUS SULFATE 325 MG TAB PO SCH (23:50)
[2020-01-25] MEDS: IBUPROFEN 600 MG TAB PO SCH ×4 (00:26→23:32)
[2020-01-25] MEDS: FERROUS SULFATE 325 MG TAB PO SCH ×2 (10:54→23:33)
[2020-01-25] MEDS: DOCUSATE SODIUM 100 MG CAP PO SCH ×2 (10:54→23:33)
[2020-01-25] MEDS: PRENATAL VIT27-FE FUMARATE-FOLIC ACID VIT TAB PO SCH (10:54)
--- NOTE | 2020-01-25 15:04 | Progress Note ---
Assessment and Plan PPD 1 s/p . Doing well. Plan for discharge on tomorrow, after 48 hours time lapse. Subjective - Subjective Date of service: 01/25/20 Interval history: Pt is a 24 year old who presents at 38.4 weeks gestation with EDC 02/02/20 in active labor. Pt has received care at [facility]. Pt has a history of anemia. records are not available for review, so patient is staying 48hours for unknown GBS. She has no new complaints. Pt refused Covid test and is being considered PUI. Patient reports: appetite normal, voiding normally, pain well controlled [place]: doing well Objective - Vital Signs Latest vital signs: Vital Signs Temp Pulse Resp BP Pulse Ox 01/25/20 09:06 97.6 F 74 18 119/85 98 01/25/20 02:24 97.5 F L 83 20 115/80 95 01/24/20 16:47 97.9 F 85 18 116/81 99 Intake and Output 01/25/20 01/25/20 01/25/20 06:59 14:59 22:59 Intake Total 360 240 Balance 360 240 Intake: Oral 240 Intake, Free Water 360 Other: Total, Intake Amount 240 # Voids Void 2 - Exam Breasts: Present: deferred Cardiovascular: Present: Regular rate, Normal S1, Normal S2 Lungs: Present: Clear to auscultation, Normal air movement Abdomen: Present: normal appearance, soft, normal bowel sounds Vulva: both: normal Uterus: Present: normal, firm Extremities: Present: normal - Labs Labs: Abnormal lab results 01/24/20 Range/Units 19:18 Hgb 6.9 L (10.1-14.3) gm/dl Hct 22.8 L D (30.3-42.9) %
[2020-01-26] MEDS: IBUPROFEN 600 MG TAB PO SCH (05:08)
--- NOTE | 2020-01-26 06:41 | Ultrasound Report ---
ULTRASOUND OBSTETRIC LIMITED ULTRASOUND BIOPHYSICAL PROFILE INDICATION / CLINICAL INFORMATION: BPP. R/O ABRUPTION. Recent history of leaking fluid. Clinical Gestational Age (GA): 38.0 weeks.days COMPARISON: Ultrasound dated 01/19/20 FINDINGS: BREATHING MOVEMENT = 2 GROSS BODY MOVEMENT = 2 TONE = 2 QUALITATIVE AMNIOTIC FLUID VOLUME = 2 TOTAL BIOPHYSICAL SCORE = 8/8 HEART RATE (beats per minute): 138 AMNIOTIC FLUID INDEX (cm) = 11.2 (normal = 7-24 cm) PRESENTATION: Cephalic. ADDITIONAL FINDINGS: Placenta is anterior with no acute abnormality. IMPRESSION: 1. Biophysical Score = 8/8 2. Anterior placenta with no acute abnormality. Signer Name: Maurizio Nichols MD Signed: 01/26/2020 6:36 AM Workstation Name: [id number]
[2020-01-26] MEDS: FERROUS SULFATE 325 MG TAB PO SCH (11:11)
[2020-01-26] MEDS: PRENATAL VIT27-FE FUMARATE-FOLIC ACID VIT TAB PO SCH (11:12)
[2020-01-26] MEDS: DOCUSATE SODIUM 100 MG CAP PO SCH (11:12)
--- NOTE | 2020-01-26 13:01 | Discharge Summary ---
Providers - Providers Date of Admission: 01/23/20 20:18 Date of discharge: 01/26/20 Attending physician: DEB ALCANTARA Primary care physician: DEB ALCANTARA Hospitalization Reason for admission: active labor Delivery: Procedure details: Please see delivery note. Episiotomy: none Laceration: none Other procedures: none Discharge diagnosis: IUP at term delivered [place] baby: male Hospital course: Pt was admitted in active labor. She went on to have a spontaneous vaginal delivery which she tolerated well. Her course was uncomplicated. She met discharge criteria on PPD#2. She will follow up in a month. Condition at discharge: Stable Disposition: DC-01 TO HOME OR SELFCARE - Discharge Diagnoses (1) Term of female Status: Acute (2) Acute on chronic anemia Status: Acute Plan - Discharge Medications Prescriptions: Ferrous Sulfate [Feosol] 325 mg PO BID #60 tablet Ibuprofen [Motrin] 800 mg PO Q8HR PRN #30 tablet PRN Reason: Pain, Moderate (4-6) - Provider Discharge Summary Activity: routine, no sex for 6 weeks, no heavy lifting 4 weeks, no strenuous exercise Diet: routine Instructions: routine Additional instructions: [] Smoking cessation referral if applicable(refer to patient education folder for contact #) [] Refer to [facility]'s [facility] Booklet Call your doctor immediately for: * Fever > 100.5 * Heavy vaginal bleeding ( >1 pad per hour) * Severe persistent headache * Shortness of breath * Reddened, hot, painful area to leg or breast * Drainage or odor from incision. * Keep incision clean and dry at all times and follow doctor's instructions regarding bathing/showering - Follow up plan Follow up: WAYNE GAO, PORTUG[employer]E TUTOR [Advanced Practice Nurse] - 02/23/20 (Please schedule follow up appt Please schedule your son's circumcision before he is one month old. )
--- NOTE | 2020-01-26 13:01 | Progress Note ---
Assessment and Plan A: PPD#2 s/p at term Acute on chronic anemia P: Routine care. Discharge home with follow up in 1 month Subjective - Subjective Date of service: 01/26/20 Principal diagnosis: s/p at term Interval history: No overnight events. Pt asking to be discharged as soon as possible. Patient reports: appetite normal, voiding normally, pain well controlled, ambulating normally : doing well Objective - Vital Signs Latest vital signs: Vital Signs Temp Pulse Resp BP Pulse Ox 01/26/20 08:10 98.2 F 75 18 120/68 01/26/20 01:25 98.3 F 75 18 119/72 98 01/25/20 16:10 98 F 80 18 125/82 98 Intake and Output 01/25/20 01/26/20 01/26/20 22:59 06:59 14:59 Intake Total 240 600 360 Balance 240 600 360 Intake: Oral 240 360 Intake, Free Water 600 Other: Total, Intake Amount 240 360 # Voids Void 1 1 - Exam Breasts: Present: deferred Abdomen: Present: soft Uterus: Present: fundal height below umbilicus Extremities: Present: normal
[2020-01-26 13:41] VITALS: BP 130/78
[2020-01-26] MEDS: HYDROcodone/ACETAMINOPHEN 5-325 MG TAB PO PRN (15:15)
== END 2020-01-26 16:25 | disposition home or self-care (01) | DRG 775 ==
LOC: TRG 19:29 → APU 19:36 → TRG 20:18 → OBSVTOIN 20:18 → LD 20:18 → OB 01-24 04:48
PROVIDERS: ADMIT Obstetrics & Gynecology; ATTEND Obstetrics & Gynecology
PROC: 10E0XZZ Delivery of Products of Conception, External Approach (ICD-10-PCS; principal; 2020-01-24)
PROC: 3E0R3BZ Introduction of Anesthetic Agent into Spinal Canal, Percutaneous Approach (ICD-10-PCS; 2020-01-24)
PROC: 00HU33Z Insertion of Infusion Device into Spinal Canal, Percutaneous Approach (ICD-10-PCS; 2020-01-24)
DX: O99.02 Anemia complicating childbirth (principal); Z3A.38 38 weeks gestation of pregnancy; Z37.0 Single live birth; O99.12 Other diseases of the blood and blood-forming organs and certain disorders involving the immune mechanism complicating childbirth; D56.3 Thalassemia minor; Z20.828 Contact with and (suspected) exposure to other viral communicable diseases
CPT/HCPCS: 36415; 59025; 76815; 76819; 80307; 81001; 85014; 85018; 85027; 86592; 86706; 86762; 86850; 86900; 86901; 87806; 96360; G0378; J0290; J2210; J2590; J3010; J7120; U0003

== ENCOUNTER 2020-12-23 10:50 | Outpatient (CLI) | payer MEDICAID ==
[2020-12-23 11:51] VITALS: BP 115/76
[2020-12-23] MEDS ORDERED: AZITHROMYCIN 250 MG TAB PO ONE (13:30)
[2020-12-23] MEDS ORDERED: LACTATED RINGERS 500 ML IV ONE (14:16)
== END 2020-12-23 14:27 | disposition home or self-care (01) ==
LOC: TRG 10:50 → APU 10:51 → TRG 14:27
PROVIDERS: ATTEND Obstetrics & Gynecology
DX: Z34.93 Encounter for supervision of normal pregnancy, unspecified, third trimester (principal); Z3A.35 35 weeks gestation of pregnancy
CPT/HCPCS: 36415; 59025; 84112

== ENCOUNTER 2021-01-05 11:17 | Inpatient (IN) | payer MEDICAID ==
[2021-01-05] MEDS ORDERED: TERBUTALINE 1 MG/1 ML INJ SUB-Q PRN (13:31)
[2021-01-05] MEDS ORDERED: MINERAL OIL 30 ML ORAL LIQD PO PRN (13:31)
--- NOTE | 2021-01-05 13:49 | History and Physical Report ---
History of Present Illness Date of examination: 01/05/21 Date of admission: 01/05/2021 Chief complaint: Frequent ctxs History of present illness: 25 yo, @ 37.5 wks gestation, [facility] care [facility] at 24 wks gestation. 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 She presents to [facility] with reports of frequent painful ctxs. She reports +FM. Denies VB or LOF. Labs: O+, antibody negative; rubella immune; VDRL negative; HBsAg negative; Hep C negative; urine culture negative; GC negative; 1 hr gtt not completed; GBS unknown. 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 denies: smoking, alcohol abuse, prescription drug abuse, IV drug use - Obstetrical History Expected Date of Delivery: 01/21/21 Actual Gestation: 37 Week(s) 5 Day(s) : 6 Para: 4 Hx # Term Pregnancies: 3 Number of Pregnancies: 1 Spontaneous Abortions: 1 Induced : 0 Number of Living Children: 4 Medications and Allergies Allergies Allergy/AdvReac Type Severity Reaction Status Date / Time No Known Allergies Allergy Verified 04/09/20 13:05 Home Medications Medication Instructions Recorded Confirmed Last Taken Type Ferrous Sulfate [Feosol] 325 mg PO DAILY 12/23/20 12/22/20 History One Daily Tablet 1 tab PO DAILY 12/23/20 12/23/20 12/22/20 History Active Meds: Active Medications Acetaminophen (Acetaminophen 325 Mg Tab) 650 mg PO Q4H PRN PRN Reason: Pain, Mild (1-3) Azithromycin (Azithromycin 250 Mg Tab) 1,000 mg PO ONCE ONE; Protocol Stop: 01/06/21 13:43 Butorphanol Tartrate (Butorphanol 2 Mg/1 Ml Inj) 2 mg IV Q2H PRN PRN Reason: Pain , Severe (7-10) Carboprost Tromethamine (Carboprost Tromethamine 250 Mcg/1 Ml Inj) 250 mcg IM ONCE PRN PRN Reason: Uterine Bleeding Ephedrine Sulfate (Ephedrine Sulfate 50 Mg/1 Ml Inj) 10 mg IV Q2M PRN PRN Reason: Hypotension Fentanyl (Fentanyl 100 Mcg/2 Ml Inj) 100 mcg IV Q2H PRN PRN Reason: Pain,Severe (7-10) LABOR PAIN Oxytocin/Sodium Chloride (Pitocin/Ns 30 Unit/500ml) 30 units in 500 mls @ 2 mls/hr IV TITR BRUCE; Protocol Lactated Ringer's (Lactated Ringers) 1,000 mls @ 125 mls/hr IV DIRECT BRUCE Oxytocin/Sodium Chloride (Pitocin/Ns 30 Unit/500ml) 30 units in 500 mls @ 40 mls/hr IV TITR BRUCE; Protocol Ampicillin Sodium (Ampicillin/Ns 1 Gm/50 Ml) 1 gm in 50 mls @ 100 mls/hr IV Q4H BRUCE; Protocol Ampicillin Sodium (Ampicillin/Ns 2 Gm/100 Ml) 2 gm in 100 mls @ 100 mls/hr IV ONCE ONE; Protocol Stop: 01/05/21 14:30 Lidocaine (Lidocaine (2%) 20 Mg/1 Ml Vial 20 Ml Mdv) 20 ml INFILTRATI ONCE ONE Stop: 01/05/21 13:32 Loperamide HCl (Loperamide 2 Mg Cap) 2 mg PO ONCE PRN PRN Reason: give with Hemabate Methylergonovine Maleate (Methylergonovine Maleate 0.2 Mg/Ml Vial) 0.2 mg IM ONCE PRN PRN Reason: Uterine Bleeding Mineral Oil (Mineral Oil 30 Ml Oral Liqd) 30 ml PO QHS PRN PRN Reason: Constipation Misoprostol (Misoprostol 200 Mcg Tab) 800 mcg ID ONCE PRN PRN Reason: Uterine Bleeding Nalbuphine HCl (Nalbuphine 10 Mg/1 Ml Inj) 10 mg IV Q2H PRN PRN Reason: Pain, Moderate (4-6) Ondansetron HCl (Ondansetron 4 Mg/2 Ml Inj) 4 mg IV Q8H PRN PRN Reason: Nausea And Vomiting Oxytocin (Oxytocin 10 Unit/1 Ml Inj) 10 unit IM ONCE PRN PRN Reason: Uterine Bleeding Terbutaline Sulfate (Terbutaline 1 Mg/1 Ml Inj) 0.25 mg SUB-Q ONCE PRN PRN Reason: Hyperstimulation/Hypertonicity Review of Systems All systems: negative Genitourinary: vaginal discharge (yellow ), contractions - Vital Signs Vital signs: Vital Signs Pulse Pulse Ox 94 H 0 L 01/05/21 12:11 01/05/21 12:11 Temp Pulse Resp BP Pulse Ox 101 H 110/68 100 01/05/21 13:28 01/05/21 12:14 01/05/21 13:28 - Physical Exam Breasts: Positive: normal Cardiovascular: Regular rate Lungs: Positive: Normal air movement Abdomen: Positive: other (gravid) Genitourinary (Female): Positive: normal external genitalia Vagina: Positive: other (yellow vaginal d/c) Uterus: Positive: enlarged (S<D) Extremities: Positive: normal Deep Tendon Reflex Grade: Normal +2 - Obstetrical FHR: category 2 Uterine Contraction Monitor Mode: External Cervical Dilatation: 7 (vertex with bulging bag) Cervical Effacement Percentage: 80 station: -1 Uterine Contraction Pattern: Irregular Uterine Tone Measurement Phase: Resting Uterine Contraction Intensity: Strong/Firm Results All other labs normal. Assessment and Plan - Patient Problems (1) Active labor at term Current Visit: Yes Status: Acute Plan to address problem: Admit to L&D Pain meds as desired per orders Anticipate (2) GBS screening not performed Current Visit: Yes Status: Acute Plan to address problem: Initiate GBS protocol (3) Anemia Current Visit: Yes Status: Acute Qualifiers: Anemia type: iron deficiency Plan to address problem: Asymptomatic Resume iron supplementation after delivery (4) Chlamydia infection affecting Current Visit: Yes Status: Acute Plan to address problem: Retreated with Azithromycin
[2021-01-05] MEDS ORDERED: ePHEDrine SULFATE 50 MG/1 ML INJ IV PRN ×2 (14:00→16:30)
[2021-01-05] MEDS ORDERED: CARBOPROST TROMETHAMINE 250 MCG/1 ML INJ IM PRN (14:00)
[2021-01-05] MEDS ORDERED: AMPICILLIN/NS 2 GM/100 ML 2 GM/100 ML BAG IV SCH (14:00)
[2021-01-05] MEDS ORDERED: NalbUPHINE 10 MG/1 ML INJ IV PRN (14:00)
[2021-01-05] MEDS ORDERED: ONDANSETRON 4 MG/2 ML INJ IV PRN ×2 (14:00→20:02)
[2021-01-05] MEDS ORDERED: OXYTOCIN 10 UNIT/1 ML INJ IM PRN (14:00)
[2021-01-05] MEDS ORDERED: LACTATED RINGERS 1,000 ML IV SCH (14:00)
[2021-01-05] MEDS ORDERED: BUTORPHANOL 2 MG/1 ML INJ IV PRN (14:00)
[2021-01-05] MEDS ORDERED: miSOPROStol 200 MCG TAB PR PRN (14:00)
[2021-01-05] MEDS ORDERED: OXYTOCIN DRIP 30 UNITS/500 ML BAG IV SCH ×2 (14:00)
[2021-01-05] MEDS ORDERED: METHYLERGONOVINE MALEATE 0.2 MG/ML VIAL IM PRN (14:00)
[2021-01-05] MEDS ORDERED: fentaNYL 100 MCG/2 ML INJ IV PRN (14:00)
[2021-01-05] MEDS ORDERED: ACETAMINOPHEN 325 MG TAB PO PRN (14:00)
[2021-01-05] MEDS ORDERED: LIDOCAINE (2%) 20 MG/1 ML VIAL 20 ML MDV INFILTRATI SCH (14:00)
[2021-01-05] MEDS ORDERED: LOPERAMIDE 2 MG CAP PO PRN (14:00)
[2021-01-05 14:39] LABS: Hematocrit 30.9 % (30.3-42.9); Hemoglobin 9.6 gm/dl (10.1-14.3); Mean Corpuscular HGB Conc 31 % (30-34); Platelet Count 314 K/mm3 (140-440); Red Blood Count 4.65 M/mm3 (3.65-5.03)
[2021-01-05 14:40] LABS: Mean Corpuscular Volume 66 fl (79-97); Red Cell Distribution Width 23.8 % (13.2-15.2)
[2021-01-05] MEDS ORDERED: AZITHROMYCIN 250 MG TAB PO SCH (15:00)
--- NOTE | 2021-01-05 15:00 | Anesthesia Consultation ---
Anesthesia Consult and Med Hx Date of service: 01/05/21 - Airway Anesthetic Teeth Evaluation: Good ROM Head & Neck: Adequate Mental/Hyoid Distance: Adequate Mallampati Class: Class II Intubation Access Assessment: Probably Good - Pulmonary Exam CTA: Yes - Cardiac Exam Cardiac Exam: RRR - Pre-Operative Health Status ASA Pre-Surgery Classification: ASA2 Proposed Anesthetic Plan: Epidural - Pulmonary Hx Asthma: No COPD: No Hx Pneumonia: No - Cardiovascular System Hx Hypertension: No - Central Nervous System Hx Seizures: No Hx Psychiatric Problems: No - Endocrine Hx Renal Disease: No Hx End Stage Renal Disease: No Hx Hypothyroidism: No Hx Hyperthyroidism: No - Hematic Hx Anemia: Yes Hx Sickle Cell Disease: No - Other Systems Hx Alcohol Use: No Hx Cancer: No
--- NOTE | 2021-01-05 15:20 | Progress Note ---
Labor Epidural - Labor Epidural Start Time: 15:12 Stop Time: 15:17 Performed by:: ESTEBAN LUIS Procedure: Patient is requesting epidural for labor pain. H&P, and labs reviewed. Procedure explained, questions answered, consent obtained. Patient in sitting position with blood pressure cuff and pulse ox on and working. Timeout performed immediately before start of procedure. Sterile chlorahexadine 0.5% prep/drape. 3 mL 1% lidocaine skin wheal at L[3]-L[4]. 17-gauge tuohy epidural needle advanced to [id number] with saline at [7] cm. Epidural catheter advanced to [12] cm, negative aspiration for blood and csf, negative test dose 3 ml 1.5% lidocaine with epinephrine. Epidural dexmedetomidine [30] mcg administered. Sterile sponge and tegaderm applied, followed by tape reinforcement. Patient tolerated procedure well. Sky SRNA
[2021-01-05] MEDS ORDERED: fentaNYL-BUPIV 2 MCG/ML-0.125% 200 MCG/100 ML BAG EPIDURAL SCH (16:30)
[2021-01-05] MEDS ORDERED: NALOXONE 2 MG/2 ML INJ IV PRN (16:30)
[2021-01-05] MEDS ORDERED: AMPICILLIN/NS 1 GM/50 ML 1 GM/50 ML BAG IV SCH (18:00)
--- NOTE | 2021-01-05 19:23 | Procedure Note ---
OB Delivery Note - Delivery Date of Delivery: 01/05/21 Surgeon: DEB ALCANTARA Estimated blood loss: other (400 mL) - Vaginal Delivery presentation: vertex Delivery position: OA Intrapartum events: mult.variable deceleratio Delivery induction: none Delivery augmentation: rupture of membranes, pitocin Delivery monitor: external FHT, external uterine Route of delivery: Delivery placenta: spontaneous Episiotomy: none Delivery laceration: none Anesthesia: epidural - Infant A Gender: Female (Apgars pending, Weight pending)
[2021-01-05] MEDS ORDERED: BENZOCAINE/MENTHOL 20/0.5% TOP SPRAY 56 GM TP PRN (20:02)
[2021-01-05] MEDS ORDERED: LANOLIN/ZINC/DIMETHICONE (LANSINOH) 7 GM TP PRN ×2 (20:02)
[2021-01-05] MEDS ORDERED: PROMETHAZINE 25 MG RECT SUPP PR PRN (20:02)
[2021-01-05] MEDS ORDERED: diphenhydrAMINE 25 MG CAP PO PRN (20:02)
[2021-01-05] MEDS ORDERED: WITCH HAZEL/ GLYCERIN PAD TP PRN (20:02)
[2021-01-05] MEDS ORDERED: MAGNESIUM HYDROXIDE (MOM) ORAL LIQD UDC PO PRN (20:02)
[2021-01-05] MEDS ORDERED: PROMETHAZINE 25 MG TAB PO PRN (20:02)
[2021-01-05] MEDS ORDERED: HYDROcodone/ACETAMINOPHEN 5-325 MG TAB PO PRN (20:02)
[2021-01-05] MEDS: IBUPROFEN 600 MG TAB PO SCH (21:10)
[2021-01-05] MEDS ORDERED: FERROUS SULFATE 325 MG TAB PO SCH (22:00)
[2021-01-06] MEDS: IBUPROFEN 600 MG TAB PO SCH (04:26)
[2021-01-06] MEDS ORDERED: TETANUS,DIPH,PERTUSS(ACELL) VACCINE 0.5 ML SYRINGE IM ONE (06:00)
--- NOTE | 2021-01-06 08:33 | Discharge Summary ---
Providers - Providers Date of Admission: 01/05/21 13:31 Date of discharge: 01/06/21 Attending physician: NARINDER DE LA FUENTE 01/05/21 20:02 Consult to Block Feeder [CONS] Routine Reason For Exam: assistance with , SNS Primary care physician: NARINDER DE LA FUENTE Hospitalization Reason for admission: active labor Delivery: Episiotomy: none Laceration: 1st degree (healing as expected) Other procedures: none complications: none Discharge diagnosis: IUP at term delivered [place] baby: female Hospital course: 25 yo, @ 37.5 wks gestation, initiated care with [facility] at 24 wks gestation. 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 She presents to [facility] with reports of frequent painful ctxs. She reports +FM. Denies VB or LOF. Labs: O+, antibody negative; rubella immune; VDRL negative; HBsAg negative; Hep C negative; urine culture negative; GC negative; 1 hr gtt not completed; GBS unknown. Delivered viable female infant that was transferred to higher level care facility. Pt request to be discharged today to go be with baby. Condition at discharge: Stable Disposition: 01 HOME / SELF CARE / HOMELESS - Discharge Diagnoses (1) Anemia Status: Acute Qualifiers: Anemia type: iron deficiency Comment: Asymptomatic Increase iron rich foods into diet (2) Chlamydia infection affecting Status: Acute Comment: Follow up in 3 weeks at office for test of cure Abstain from sex for 6 weeks (3) Term of female Status: Acute Plan - Discharge Medications Prescriptions: Ferrous Sulfate [Feosol 325 MG tab] 325 mg PO BID 30 Days #60 tablet Ibuprofen [Motrin 600 MG tab] 600 mg PO Q8H 7 Days #21 tablet - Provider Discharge Summary Activity: routine, no sex for 6 weeks, no heavy lifting 4 weeks, no strenuous exercise Diet: other (Iron rich diet) Instructions: routine Additional instructions: [] Smoking cessation referral if applicable(refer to patient education folder for contact #) [] Refer to [facility] Booklet Call your doctor immediately for: * Fever > 100.5 * Heavy vaginal bleeding ( >1 pad per hour) * Severe persistent headache * Shortness of breath * Reddened, hot, painful area to leg or breast * Drainage or odor from incision. * Keep incision clean and dry at all times and follow doctor's instructions regarding bathing/showering - Follow up plan Follow up: NARINDER DE LA FUENTE MD [Primary Care Provider] - 6 Weeks
[2021-01-06 10:13] LABS: Hematocrit 28.9 % (30.3-42.9); Hemoglobin 8.7 gm/dl (10.1-14.3)
[2021-01-06 12:59] VITALS: BP 115/82
[2021-01-06] MEDS ORDERED: MEASLES, MUMPS & RUBELLA 12,500 UNIT/0.5 ML VACCINE SUB-Q ONE (19:27)
== END 2021-01-06 12:30 | disposition home or self-care (01) | DRG 774 ==
LOC: TRG 11:17 → APU 11:21 → TRG 13:31 → LD 13:31 → OB 21:15
PROVIDERS: ADMIT Obstetrics & Gynecology; ATTEND Obstetrics & Gynecology
PROC: 10E0XZZ Delivery of Products of Conception, External Approach (ICD-10-PCS; principal; 2021-01-05)
PROC: 3E0R3BZ Introduction of Anesthetic Agent into Spinal Canal, Percutaneous Approach (ICD-10-PCS; 2021-01-05)
PROC: 00HU33Z Insertion of Infusion Device into Spinal Canal, Percutaneous Approach (ICD-10-PCS; 2021-01-05)
PROC: 3E0234Z Introduction of Serum, Toxoid and Vaccine into Muscle, Percutaneous Approach (ICD-10-PCS; 2021-01-06)
DX: O76 Abnormality in fetal heart rate and rhythm complicating labor and delivery (principal); O98.32 Other infections with a predominantly sexual mode of transmission complicating childbirth; Z3A.37 37 weeks gestation of pregnancy; Z37.0 Single live birth; A60.00 Herpesviral infection of urogenital system, unspecified; O99.02 Anemia complicating childbirth; O62.2 Other uterine inertia; O70.0 First degree perineal laceration during delivery; Z23 Encounter for immunization
CPT/HCPCS: 36415; 59025; 81001; 85014; 85018; 85027; 86592; 86850; 86900; 86901; 88307; 90471; 90715; G0378; J0290; J2210; J2590; J7120